=== PATIENT | female | born 1955 | race Caucasian/White ===

== ENCOUNTER 2021-03-15 09:14 | Emergency (ER) | payer MEDICARE, SELFPAY ==
[2021-03-15 09:35] VITALS: BP 145/74; PULSE 81; RESP 16; TEMP 35.7; O2SAT 96
[2021-03-15 09:46] VITALS: O2SAT 96
--- NOTE | 2021-03-15 09:47 | ED.URI ---
HPI - URI/Sore Throat General Chief Complaint: Shortness of Breath/Dyspnea Stated Complaint: trouble breathing/cough Source: patient and RN notes reviewed Mode of arrival: ambulatory Limitations: no limitations History of Present Illness HPI Narrative: patient states that her symptoms began about 10 days ago. Her has COVID and he had worse symptoms than she did. She began getting progressively worse just in the last 2 days. She denies being short of breath except when she exerts herself. MD elicited complaint: cough Onset (ago): day(s) (2) Consistency: intermittent and progressively worsening Severity: moderate Description of mucous: clear Able to tolerate fluids by mouth: Yes Exacerbating factors: nothing Relieving factors: nothing Context: sick contacts ( with COVID) Associated symptoms: headache, nasal congestion and cough Treatments prior to arrival: none Related Data Home Medications Medication Instructions Recorded Confirmed Synthroid 03/15/21 atorvastatin 03/15/21 Allergies Allergy/AdvReac Type Severity Reaction Status Date / Time No Known Allergies Allergy Verified 03/15/21 10:26 Review of Systems Review of Systems: All systems reviewed & are unremarkable except as noted in HPI and below Constitutional: Constitutional: Denies chills and Denies fever(s) Cardiovascular: Cardiovascular: Denies chest pain Respiratory: Respiratory: Denies dyspnea PMFSH Past Medical History Medical History (Updated 03/15/21 @ 11:01 by Silvio Robert MD) Hyperlipidemia Hypothyroidism Surgical History Surgical History (Updated 03/15/21 @ 09:46 by Silvio Robert MD) H/O hand surgery H/O: hysterectomy Social History Social History (Updated 03/15/21 @ 09:46 by Silvio Robert MD) Smoking status: Never smoker Exam Const: General: healthy appearing, no acute distress and alert Nutritional Appearance: well nourished Orientation/consciousness: patient oriented x3 Limitations: altered mental status HENMT: Head: normal to inspection Ears: external ears normal Face and sinus: normal facial exam Eyes: Conjunctivae: conjunctivae normal Pupils: Equal, round and reactive pupils present EOM: EOMs intact bilaterally Neck: Neck: normal visual inspection Resp: Effort & Inspection: normal respiratory effort Auscultation: clear to auscultation bilaterally Cardio: Rate: regular rate Rhythm: regular rhythm GI: GI Palp: Yes Soft to palpation and No Tenderness to palpation present (GI) Auscultation: normal bowel sounds Back/Spine/Pelvis: Cervical Spine: cervical ROM normal Thoracic/Lumbar Spine: thoraco-lumbar ROM normal Skin: General skin exam: normal color Rashes: no rashes Neuro: General: patient oriented x3, moves all extremities, no meningeal signs, no focal motor deficits and CN's II-XI intact bilaterally Speech: normal speech Gait exam (Neuro): Normal gait present Extrem: General: normal to inspection Psych: Appearance: grossly normal and well kempt Mental Status: mental status grossly normal Affect: normal affect Attitude: cooperative Thought content: Yes Normal thought content present Course Vital Signs Vital signs: Vital Signs Temperature 35.7 C L 03/15/21 09:35 Pulse Rate 81 03/15/21 09:35 Respiratory Rate 16 03/15/21 09:35 Blood Pressure 145/74 H 03/15/21 09:35 Pulse Oximetry 96 03/15/21 09:35 Temperature 36.6 C 03/15/21 11:30 Pulse Rate 79 03/15/21 11:30 Respiratory Rate 16 03/15/21 11:30 Blood Pressure 142/67 H 03/15/21 11:30 Pulse Oximetry 98 03/15/21 11:30 MDM - URI/Sore Throat Lab Data Labs: Lab Results 03/15/21 Range/Units 09:50 Influenza A (RT-PCR) Negative (Negative) Influenza B (RT-PCR) Negative (Negative) SARS-CoV-2 RNA (RT-PCR) Positive A (Negative) Discharge Plan Discharge Clinical Impression: COVID-19 Patient Disposition: Home, Self-Care Condition: Stable Instruct
[2021-03-15 10:33] LABS: Influenza A QL RT-PCR Negative (Negative); Influenza B QL RT-PCR Negative (Negative); SARS-CoV-2 RNA PCR Positive (Negative)
[2021-03-15 11:30] VITALS: BP 142/67; PULSE 79; RESP 16; TEMP 36.6; O2SAT 98
== END 2021-03-15 11:16 | disposition home or self-care (01) ==
PROVIDERS: Emergency Provider Emergency Medicine
DX: U07.1 COVID-19 (principal)
CPT/HCPCS: 87502; 99282; 99283; C9803; U0003; U0005